=== PATIENT | female | born 1945 | race Caucasian/White ===

== ENCOUNTER 2024-12-22 19:45 | Inpatient (IN) | payer MEDICARE, BC, SELFPAY ==
[2024-12-22] VITALS (7 sets, daily range): BP systolic 126–161; BP diastolic 54–100; BMI 24.9
--- NOTE | 2024-12-22 16:31 | ED.GENMED ---
History of Present Illness
General
Chief Complaint: Weakness
Source: patient and family
Time Seen by Provider: 12/22/24 15:58
History of Present Illness
History of Present Illness:
79-year-old female with past medical history of MS and hyperlipidemia presenting to the emergency department for evaluation of weakness to bilateral lower extremities, initially today right leg felt a little bit weaker than the left but now she
states left leg seems to be bothering her a little bit more, due to the weakness had a fall where she was unable to get herself from the ground and required family members to lift her up. Patient does have a history of falls resulting in bilateral
hip fractures and ankle fractures, she denies any current pain. Family states that patient for the most part is quite independent and needs minimal assistance but was concerned due to her worsening weakness which is what prompted them to bring her
to the ER today. Patient denies any headaches, visual changes/diplopia/blurred vision, focal numbness, chest pain, shortness of breath or any other concerns. Patient was taken off of her MS medications at the age of 74 as family reports the
neurologist said the medication would no longer be of much benefit. Social history otherwise noncontributory.
Past History
Past History
ED Past Medical History: Hypercholesterolemia, Seizures (?) and Other (MS, previous intracranial hemorrhage, previous seizure after intercranial hemorrhage. It's not clear whether this was a subdural hematoma or subarachnoid. Hyperlipidemia)
ED Past Surgical History: Cholecystectomy, Gynecological and Orthopedic
Social History
Tobacco: Non-smoker
Alcohol: None
Drug: None
Personal:
Living: with family
Employment: Not employed
Family History
Family History: Other
Review of Systems
Review of Systems
All Other Systems: ROS reviewed and negative except as documented in HPI and ROS
Phy Exam
Physical Exam
Physical Exam:
GENERAL: Alert , in no apparent distress, smiling and pleasant
HEAD: Normocephalic atraumatic
EYE: Clear conjunctiva, pupils 4 mm bilateral
NECK: Supple, no midline tenderness
ENT: o/p clr, mmm.
CARDIAC: Regular rate and rhythm .
LUNGS: Clear breath sounds bilaterally, no acute respiratory distress, no wheezes/rales/rhonchi
ABDOMEN: Soft, without focal tenderness, no r/g, no cvat
NEUROLOGICAL: Alert and oriented, no focal neuro deficits, moves all extremities, intact and equal sensation bilateral, slow speech with mild slurring but both patient and daughter report this is normal for her
SKIN: Warm and dry, skin intact.
MUSCULOSKELETAL: No edema, well perfused.
PSYCH: Normal and appropriate interaction.
Scores
Heart Failure Risk
Heart Failure Risk Score: Not Applicable
Heart Score for Chest Pain Patients
STEMI patient?: Not applicable
Withdrawal Assessment of Alcohol
Withdrawal Assessment Completed?: Not applicable
Course
Orders/Labs/Results
Orders:
Orders
12/22/24 16:16
Electrocardiogram (*1) Urgent
Reason for Study: Fatigue / Weakness
CT Head W/o Iv Contrast Urgent
Comment:
Reason For Exam: MS, bilateral LE weakness
EKG- Treatment ONCE
12/22/24 16:49
Basic Metabolic Panel Urgent
Complete Blood Count/With Diff Urgent
Magnesium Urgent
TSH Urgent
12/22/24 19:26
COVID-19 Antigen Routine
Source: Nasal Swab
12/22/24 19:33
Admit/Transfer Patient As Directed
Co-Sign Provider:
Level of Care: Inpatient admission
Assign to:: Medical/Surgical
Physician / Group: htay
Diagnosis: b/l Luis weakness
Reason for Hospitalization: Both leg weakness and acute on chr gait dysfunction
Expected length of stay greater than two midnights?: Yes
ELOS- Estimated Length of Stay in days: 3
I certify the patient meets the requirements for IP care: Yes
12/22/24 19:35
Code Status As Directed
Resuscitation Status: Full Code
12/22/24 19:37
Influenza A+B Rapid Molecular Routine
ARISTIDES Source: Nasal Swab
Specimen Description:
12/22/24 19:38
Urinalysis Reflex To Culture Routine
Abnormal Lab Results
12/22/24
16:49
RBC 3.95 L 10^6/uL
(4.20-5.40)
Hct 35.6 L %
(37.0-47.0)
Abs Immat Gran (auto) 0.1 H 10^3/uL
(0-0.05)
Absolute Neuts (auto) 6.9 H 10^3/uL
(1.4-6.5)
Absolute Lymphs (auto) 0.9 L 10^3/uL
(1.2-3.4)
Immature Gran % 0.6 H %
(0-0.5)
Neutrophils % 82.2 H %
(42.2-75.2)
Lymphocytes % 10.3 L %
(20.5-51.1)
Chloride 108 H mmol/L
(98-107)
Glucose 118 H mg/dl
(70-99)
12/22/24 16:49
12/22/24 16:49
Vital Signs
Initial and Last Documented VS:
Initial Vital Signs
Temp Pulse Resp BP Pulse Ox
98.4 F 105 17 155/87 95
12/22/24 15:07 12/22/24 15:07 12/22/24 15:07 12/22/24 15:07 12/22/24 15:07
Last Documented Vital Signs
Temp Pulse Resp BP Pulse Ox
98.4 F 101 17 150/72 99
12/22/24 15:07 12/22/24 19:00 12/22/24 19:00 12/22/24 19:00 12/22/24 19:00
MDM/Problems Addressed
Differential Diagnosis Includes:
MS exacerbation, less concern for CVA given bilateral symptoms, electrolyte derangement, intracranial bleed/mass/space-occupying lesion, deconditioning
MDM/Problems Addressed:
7-year-old female presenting to the ER for evaluation following accidental fall resulting in her having difficulty getting up off the ground and requiring multiple family members to help get her up, family brought her here for further evaluation.
Patient without any pain related complaints. She does state that both legs feel little bit weak but left currently feels a little bit more weak than the right despite the triage complaint of stating the right leg seems to be worse than the left.
On my exam patient is moving both extremities without any difficulty and has intact strength. Given her MS history will obtain CT scan of the head. Labs ordered. Disposition pending.
Chronic conditions affecting care: Neurological disorder
*Radiology
Radiology exam reviewed: radiology read reviewed
*Pulse Oximetry
Patient hypoxic: no
*Critical Care Note
Total Time (30-74mins, 75-104mins- exclusive of procedures): Not Applicable
Patient Management
Discussion with other providers: Hospitalist
Escalation/DeEscalation of care consider admission/obs:
CT scan without any acute intracranial findings. I do not have any concerns for sinusitis as a cause for patient's symptoms. Given her age and chronic medical conditions as well as fall risk I do not feel it is safe for patient to be discharged
home presently and will admit for further evaluation and consultation with physical therapy and potential neurology if hospitalist team deems necessary. Hospitalist team accepts for continued evaluation and treatment.
ED Attending Note
-
Portions of this chart may have been created with voice recognition software.� Occasional wrong word or��sound alike� substitutions may have occurred due to the inherent limitations of voice recognition software.
Discharge Plan
Departure
Patient Disposition: Admit
Date of Disposition: 12/22/24
Time of Disposition: 19:02
Presentation/result/management discussed w/ accepting MD/DO: Hospitalist
Discharge Problem:
Weakness of both lower extremities, Accidental fall
Prescriptions:
No Action
citalopram 20 MG tablet
20 mg PO DAILY
PreserVision AREDS-2 1 EACH capsule
1 cap PO BID
cetirizine 10 MG tablet
10 mg PO HS
ascorbic acid (vitamin C) [Vitamin C] 500 MG tablet
500 mg PO DAILY
alprazolam 0.5 MG tablet
0.5 mg PO HS
pantoprazole [Protonix] 40 mg Tablet,Delayed Release (Dr/Ec)
40 mg PO DAILY
vitamin E 670 mg (1,000 unit) Capsule
670 mg PO DAILY
simvastatin 20 mg Tablet
20 mg PO HS
solifenacin 5 mg Tablet
5 mg PO DAILY
calcium carbonate-vitamin D3 [Calcium 500 + D] 500 mg-10 mcg (400 unit) Tablet
1 tab PO DAILY
cyanocobalamin (vitamin B-12) 1,000 MCG tablet
1,000 mcg PO HS
Referrals:
Delmer Terry MD [Family Provider] -
Interventions
Interventions:
*Risk Screen - Suicide Last Done: 12/22/24 15:11
*General Assessment Last Done: 12/22/24 15:11
*Neglect/Abuse Screening Last Done: 12/22/24 15:11
*ED COVID-19 Vaccine History Last Done: 12/22/24 15:11
ED- Cardiac Assessment Last Done: 12/22/24 16:16
ED- Neurological Assessment Last Done: 12/22/24 16:16
ED- Pulmonary Assessment Last Done: 12/22/24 16:16
Discharge Date and Time
Print Language: UKRAINIAN
[2024-12-22 17:36] LABS: % Basophils 0.2 % (0-2); % Eosinophils 0.2 % (0-6); % Immature Granulocytes 0.6 % (0-0.5); % Lymphocytes 10.3 % (20.5-51.1); % Monocytes 6.5 % (1.7-9.3); % Neutrophils 82.2 % (42.2-75.2); Absolute Immature Granulocytes 0.1 10^3/uL (0-0.05); Absolute Lymphocytes 0.9 10^3/uL (1.2-3.4); Absolute Monocytes 0.5 10^3/uL (0.1-0.6); Absolute Neutrophils 6.9 10^3/uL (1.4-6.5); Hematocrit 35.6 % (37.0-47.0); Hemoglobin 12.1 g/dL (12.0-16.0); Mean Corpuscular Hgb 30.6 pg (27.0-31.0); Mean Corpuscular Volume 90.1 fL (81.0-99.0); Mean Platelet Volume 8.6 fL (7.4-10.4); Nucleated Red Blood Cells % 0 %; Platelet Count 243 10^3/uL (130-400); Red Blood Cell Count 3.95 10^6/uL (4.20-5.40); Red Cell Dist. Width 12.6 % (11.5-14.5); White Blood Cell Count 8.4 10^3/uL (4.8-10.8)
[2024-12-22 17:39] LABS: Blood Urea Nitrogen 15 mg/dl (7-17); Calcium 9.3 mg/dl (8.4-10.2); Carbon Dioxide 26 mmol/L (22-30); Chloride 108 mmol/L (98-107); Glucose 118 mg/dl (70-99); Magnesium 2.3 mg/dl (1.6-2.3); Potassium 4.1 mmol/L (3.5-5.1); Sodium 144 mmol/L (135-145); eGFR > 60.00
[2024-12-22 18:10] LABS: TSH 0.73 uIU/ml (0.47-4.68)
--- NOTE | 2024-12-22 19:30 | HPS.HSE ---
Family Physician
-
Family Physician: Delmer Terry
Chief Complaint
-
B/l Luis weakness
History of Present Illness
HPI
79F HX MS, HLD and hyperlipidemia, HX ORIF right hip long gamma nail on 05/07/2023 for R Hip Fx seen at ER:
- weakness to bilateral lower extremities
- Initially Rt Luis felt a little bit weaker than the left
- now Lt Luis is waeaker complicated by fall
- After fall where she was unable to get herself from the ground and required family members to lift her up.
- Family states that patient for the most part is quite independent and needs minimal assistance
- family concerned due to her worsening weakness which is what prompted them to bring her to the ER today.
Of note: Patient was taken off of her MS medications at the age of 74 as family reports the neurologist said the medication would no longer be of much benefit.
ROS:
- denies any current pain.
- denies any headaches, visual changes/diplopia/blurred vision, focal numbness, chest pain, shortness of breath or any other concerns. P
Medical History
Past Medical History
Past Medical History: Reports Other (previous intracranial hemorrhage with post seizure, HLD, GERD, multiple sclerosis chronic ambulatory dysfunction uses walker, allergies, OA, insomnia, HLD)
Past Surgical History: Reports Other (Cholecystectomy, total hip replacement November 2012, lower back procedure 2009, right ankle ORIF 2019, tubal ligation 1971, lumpectomy 2004)
Social History
Tobacco: Non-smoker
Alcohol: None
Drug: None
Personal:
Living: With Family
Employment: Retired
Family History
Family History: Not pertinent
Allergies / Home Medications
Allergies reflects when Allergies were last updated in [facility].
Home Medications with original date entered in [facility]
Allergy/Medication List:
Allergies
Allergy/AdvReac Type Severity Reaction Status Date / Time
codeine [Codeine] Allergy Unknown Verified 05/05/23 17:23
erythromycin base Allergy Unknown Verified 05/05/23 17:23
[Erythromycin Base]
oxytetracycline Allergy Unknown Verified 05/05/23 17:23
[From Terramycin]
oxytetracycline HCl Allergy Unknown Verified 05/05/23 17:23
[From Terramycin]
Penicillins Allergy Unknown Verified 05/05/23 17:23
Sulfa (Sulfonamide Allergy Unknown Verified 05/05/23 17:23
Antibiotics)
[Sulfa(Sulfonamide
Antibiotics)]
Tetanus Vaccines and Toxoid Allergy Unknown Verified 05/05/23 17:23
[Tetanus]
Home Medications
citalopram 20 mg tablet 20 mg PO DAILY 06/08/12
simvastatin 20 mg tablet 20 mg PO HS 06/08/12
vit C 250 mg-vit E 90 mg-zinc 40 mg-copper 1 [id number]-[id number]-oftlgy capsule (PreserVision AREDS-2) 1 cap PO BID 04/05/19
ascorbic acid (vitamin C) 500 mg tablet (Vitamin C) 500 mg PO DAILY 10/04/19
calcium carbonate 500 mg-vitamin D3 3.125 mcg (125 unit) tablet 1 ea PO DAILY 10/04/19
cetirizine 10 mg tablet 10 mg PO HS 10/04/19
vitamin E 670 mg (1,000 unit) capsule 1,000 unit PO DAILY 10/04/19
acetaminophen 325 mg tablet 650 mg PO Q4HWA 10/05/19
aspirin 81 mg tablet,delayed release 81 mg PO DAILY 10/05/19
cholecalciferol (vitamin D3) 50 mcg (2,000 unit) tablet 2,000 units PO DAILY 10/05/19
cyanocobalamin (vitamin B-12) 1,000 mcg tablet 1,000 mcg PO DAILY 10/05/19
magnesium hydroxide 400 mg/5 mL oral suspension 30 ml PO DAILYPRN PRN constipation 10/05/19
alprazolam 0.5 mg tablet 0.5 mg PO HS 05/05/23
docusate sodium 100 mg capsule 100 mg PO BID PRN consitpation 05/05/23
pantoprazole 40 mg tablet,delayed release (Protonix) 40 mg PO DAILY 05/05/23
sennosides 8.6 mg tablet (senna) 2 tab PO BID PRN consitpation 05/05/23
tolterodine 2 mg PO DAILY AT 0700 05/05/23
Review of Systems
-
Constitutional: Reports No Symptoms
EENT: Reports No Symptoms
Respiratory: Reports No Symptoms
Cardiac: Reports No Symptoms
Abdomen/GI: Reports No Symptoms
: Reports No Symptoms
Musculoskeletal: Reports No Symptoms
Skin: Reports No Symptoms
Neurological: Reports See HPI and Weakness (b/l Luis )
Endocrine: Reports No Symptoms
Hematologic/Lymphatic: Reports No Symptoms
Psych: Reports No Symptoms
Physical Exam
Vital Signs
Vital Signs
Temp Pulse Resp BP Pulse Ox
98.4 F 101 17 150/72 99
12/22/24 15:07 12/22/24 19:00 12/22/24 19:00 12/22/24 19:00 12/22/24 19:00
Physical Exam
General: Conversant and Other (Chronic slow speech due to multiple sclerosis); No Pain or Fever
HEENT: NormoCephalic, Anicteric, Moist mucous membranes, Atraumatic, PERRLA, Twodot Conjunctivae and Neck Nontender
Respiratory: Clear; No Wheezes, Rales or Rhonchi
Cardiac: S1/S2 and Regular Rhythm; No Murmur, Rub, Gallop or Peripheral Edema
GI: Soft, Non Tender, Non Distended, Normal Bowel Sounds and No Hepatosplenomegaly
Rectal: Deferred by Provider
Genito-urinary: Deferred by me
Musculoskeletal: No Clubbing, No Cyanosis, No Edema and Other (Tenderness right distal femur)
Neuro: AO x 3, Cranial Nerves Intact, No Sensory Deficits and Other (Slow speech secondary to MS); No Slurred Speech, Facial Droop or Tremors
Psych: Calm
Laboratory Results
-
12/22/24 16:49
12/22/24 16:49
Data Reviewed
-
CT Scan: Report Reviewed by me
Lab Data: Labs Reviewed by me
Old Records: Reviewed
Impression/Plan
-
Vital Signs
Temp Pulse Resp BP Pulse Ox
98.4 F 101 17 150/72 99
12/22/24 15:07 12/22/24 19:00 12/22/24 19:00 12/22/24 19:00 12/22/24 19:00
12/22/24
16:49
WBC 8.4
Hgb 12.1
Plt Count 243
BUN 15
Creatinine 0.6
eGFR > 60.00
CT Head W/o Iv Contrast
- No acute intracranial abnormality noted.
- There is opacification of the right maxillary sinus and ethmoid air cells with partial opacification of the right frontal sinus which may represent acute sinusitis.
Last hospitalist admission: 05/05/2023 - 05/10/2023
DC DXs:
1. Mechanical fall with right hip fracture status post ORIF right hip long gamma nail on 05/07/2023.
2. Long QTc-chronic.
3. Blood loss anemia secondary to surgery.
4. Constipation.
5. Multiple sclerosis.
6. Vitamin D deficiency.
7. Hyperlipidemia.
8. Depression.
9. Overactive bladder.
10.Gastroesophageal reflux disease.
11.Osteoarthritis.
12.Insomnia.
13.Hearing impairment.
ASSESSMENT & PLAN
B/L Luis weakness Lt > Rt altered from prior baseline DDX: MS flare up vs TME
HX Multiple sclerosis
- Is no longer on treatment
- Speaks with very slow voice eats chopped diet and drinks with a straw
- Uses walker at baseline
- Check Covid, Flu A & B and UA to complete w/u
- supportive care with IVF
- Neuro consult to guid further w/u
HLD
- c/w simvastatin 20 mg HS
HX ICH with post seizure HX
- no current seizure meds
Depression
- c/w Celexa
Overactive bladder
- c/w tolterodine
OA HX
- c/w Os-James
Insomnia
- c/w Xanax 0.5 mg HS
DVT Px: SQH
Full code
Obs MS
[2024-12-22 20:07] LABS: COVID-19 Antigen Negative (Negative)
--- NOTE | 2024-12-22 22:00 | PTCARENOTE ---
Patient admitted from ED. Patient AOx3, pulled over from stretcher to bed. Patient has c/o left leg pain, requested PRN tylenol. Vitals obtained, pt assessed. Call martinez within reach. Will continue to monitor. Bed alarm in place due to fall prior to
admission. Safety maintained.
[2024-12-22] MEDS: HEPARIN 5000 UNITS SC (22:12)
[2024-12-22] MEDS: LIPITOR 10 MG PO (22:12)
[2024-12-22] MEDS: XANAX 0.5 MG PO (22:12)
[2024-12-22] MEDS: NSS 1000 IV (22:12)
[2024-12-22] MEDS: TYLENOL 650 MG PO (22:28)
[2024-12-22 23:14] LABS: Urine Albumin 2+ (Neg - Trace); Urine Bilirubin Negative (Negative); Urine Character Cloudy (Clear); Urine Color Yellow; Urine Glucose Negative (Negative); Urine Ketone Negative (Negative); Urine Leukocyte 1+ (Negative); Urine Nitrite Positive (Negative); Urine Occult Blood Negative (Negative); Urine Specific Gravity 1.015 (<1.030); Urine Urobilinogen Negative (Neg - 1+)
[2024-12-22 23:40] LABS: Urine Bacteria Many (Negative)
[2024-12-23 05:00] VITALS: BMI 24.9
[2024-12-23 06:36] LABS: Hematocrit 33.1 % (37.0-47.0); Hemoglobin 11.1 g/dL (12.0-16.0); Mean Corp Hgb Conc. 33.5 g/dL (33.0-37.0); Mean Corpuscular Hgb 30.2 pg (27.0-31.0); Mean Corpuscular Volume 90.2 fL (81.0-99.0); Mean Platelet Volume 8.4 fL (7.4-10.4); Platelet Count 199 10^3/uL (130-400); Red Blood Cell Count 3.67 10^6/uL (4.20-5.40); Red Cell Dist. Width 12.7 % (11.5-14.5); White Blood Cell Count 6.7 10^3/uL (4.8-10.8)
[2024-12-23 07:04] LABS: Blood Urea Nitrogen 11 mg/dl (7-17); Calcium 8.9 mg/dl (8.4-10.2); Carbon Dioxide 26 mmol/L (22-30); Chloride 110 mmol/L (98-107); Estimated Creatinine Clearance 62 ml/min; Glucose 107 mg/dl (70-99); Potassium 4.2 mmol/L (3.5-5.1); Sodium 143 mmol/L (135-145); eGFR > 60.00
[2024-12-23 07:42] VITALS: BP 119/68
[2024-12-23] MEDS: CELEXA 20 MG PO (07:48)
[2024-12-23] MEDS: PROTONIX 40 MG PO (07:49)
[2024-12-23] MEDS: HEPARIN 5000 UNITS SC ×2 (07:49→21:01)
--- NOTE | 2024-12-23 08:14 | W.PN.HOSP.TC ---
Addendum entered and electronically signed by Gato Pastrana MD 12/23/24 22:02:
Attending Addendum-
I saw and evaluated the patient. I reviewed the resident�s note and agree with findings and plan as documented in the resident�s note. Sub: Very pleasant. Feels weak but no ther complaints. States that she was urinating more frequently after being
stared on IVF. Seen with and daughter present. Denies numbness tingling vision changes other neuro sxs fevers chills. Full 12 point ROS reviewed and negative except as documented Exam: Vitals reviewed in chart GEN-NAD heart RRR lungs clear
abd soft LE +1 edema b/l Neuro AAO x 3 MS 4+/5
Plan:
# Bilateral lower extremity weakness
- Etiology unclear
- generalized
- ? MS flare
- t/c c/s neuro
- Head CT no acute intracranial abnormalities other than findings suggestive of right frontal and maxillary sinus sinusitis
- COVID flu negative
- PT OT consult
# MS
- not on meds
- taken off by neurologist due to age related reasons per daughter
- CTM
- T/C neuro eval
# Hyperlipidemia
- Continue simvastatin
# Bacteruria
- await cx results
- with h/o abx allergies and not being septic - hold off on abx for now
# History of anemia, chronic normocytic
- Hemoglobin stable
# History of insomnia
- Continue Xanax
# History of overactive bladder
- Continue solifenacin
# History of depression
- Continue citalopram
# History of seizure and intracranial hemorrhage
DVT prophylaxis heparin
Code- Full->DNR d/w POA and daughter
Dispo would benefit from SNF vs acute rehab await
ACP
Patient consented to discuss, was with daughter and (POA), time spent explanation of advance directives, changes in health status, patient�s health care wishes if the patient becomes unable to make health decisions, goals of care, code
status, and prognosis 'when im ready let the lord take me'- 16 minutes
Time spent coordinating care, review of plan of care with resident, personally reviewed previous records in EMR, med rec, labs, radiology, d/w nursing, family total time documented is exclusive of any additional time listed that was spent in advance
care planning discussion -� 55 minutes
Original Note:
Today's Communication/Plan
-
PT OT consult
Urine culture pending
Assessment / Plan
Assessment / Plan
79-year-old female with pmhx of MS, hx of intracranial hemorrhage and seizure, hyperlipidemia, hx of for R Hip Fx s/p ORIF right hip long gamma nail (2022) presenting to the ED for evaluation of weakness to bilateral lower extremities, initially
right leg but now left leg. She had a fall where she was unable to get herself from the ground and required family members to lift her up. Patient does have a history of falls resulting in bilateral hip fractures and ankle fractures secondary to
her MS, she denies any current pain. Family states that patient for the most part is quite independent and needs minimal assistance. Patient denies any headaches, visual changes/diplopia/blurred vision, focal numbness, chest pain, shortness of
breath or any other concerns. Patient was taken off of her MS medications at the age of 74 as family reports the neurologist said the medication would no longer be of much benefit.
# Bilateral lower extremity weakness
- Etiology unclear, metabolic vs MS flare versus stroke
- Head CT no acute intracranial abnormalities other than findings suggestive of right frontal and maxillary sinus sinusitis
- COVID flu negative
- No history of irregular rhythm. EKG normal sinus rhythm in the ED
- UA suggestive of infection
- Patient initially denied any urinary symptoms but on further questioning noted urgency although has a history of overactive bladder. She is allergic - hives - to several antibiotics including penicillin, sulfa, tetracycline.
- Urine culture pending. Will wait for culture results before starting treatment
- PT OT consult
# Hyperlipidemia
- Continue simvastatin
# History of anemia, chronic normocytic
- Hemoglobin stable
# History of insomnia
- Continue Xanax
# History of overactive bladder
- Continue solifenacin
# History of depression
- Continue citalopram
# History of seizure and intracranial hemorrhage
DVT prophylaxis heparin subcu
Anticipated Discharge: Within 24 hours
Subjective/Interval History
-
Date of Service: December 23, 2024
Objective Data
-
Labs:
Laboratory Results
12/23/24
06:18
WBC 6.7
Hgb 11.1 L
Hct 33.1 L
Plt Count 199
Sodium 143
Potassium 4.2
Chloride 110 H
Carbon Dioxide 26
BUN 11
Creatinine 0.6
Glucose 107 H
Calcium 8.9
Vital Signs:
Vital Signs
Temp Pulse Resp BP Pulse Ox
97.7 F 84 18 119/68 96
12/23/24 07:42 12/23/24 07:42 12/23/24 07:42 12/23/24 07:42 12/23/24 07:42
I&O
12/22/24 12/23/24 12/24/24
06:59 06:59 06:59
Intake Total 240 / 240
Balance 240 / 240
Review of Systems
-
History Source: Patient
Constitutional: Reports Weakness
EENT: Reports No Symptoms Reported
Respiratory: Reports No Symptoms
Cardiac: Reports No Symptoms
Abdomen/GI: Reports No Symptoms
Breast: Reports No Symptoms
Genitourinary: Reports No Symptoms
Musculoskeletal: Reports No Symptoms
Skin: Reports No Symptoms
Neuro: Reports No Symptoms
Endocrine: Reports No Symptoms
Hematologic / Lymphatic: Reports No Symptoms
Allergy / Immunology: Reports No Symptoms
Psych: Reports Sad
Physical Exam
-
General: Well Developed, Well Nourished, No Apparent Distress and Comfortable
HEENT: Normocephalic and No Ptosis
Respiratory: Clear to Auscultation
Cardiac: Regular Rhythm and S1/S2
GI: Soft, Nontender, Nondistended and Normal Bowel Sounds
Genito-urinary: No Costovertebral Tender and Clear Urine
Musculoskeletal: No Clubbing, No Cyanosis, No Edema and Other (Bilateral hip flexion 4/5, left knee extension 4/5, right knee extension 4+/5, left plantar flexion 3/5, right plantar flexion 4/5)
Skin: Warm
Neuro: Awake, Alert, Oriented, AO x 3, Central Nerve's Intact and No Sensory Deficits; Negative Slurred Speech or Facial Droop
Psych: Calm
[2024-12-23] MEDS: VESICARE 5 MG PO (08:54)
[2024-12-23] MEDS: NSS 1000 IV (12:43)
--- NOTE | 2024-12-23 13:51 | CM ---
Patient seen bedside with spouse and daughter Jaja.
Patient able to answer questions appropriately.
Patient lives with spouse in multilevel home.
Does not use assistive devices, but has a RW, WC and stair glide.
Patient has been to [facility] the past. Had [facility] in the past.
PT/OT evals (P).
Patient with a hx MS.
PCP: Dr Gutiérrez
Pharmacy: [facility]
Plan: home vs skilled rehab.
[2024-12-23 15:23] VITALS: BP 147/76
[2024-12-23] MEDS: XANAX 0.5 MG PO (21:02)
[2024-12-23] MEDS: LIPITOR 10 MG PO (21:02)
[2024-12-23 23:00] VITALS: BP 163/79
[2024-12-24 00:51] VITALS: BP 144/99
[2024-12-24 05:50] VITALS: BMI 25.1
[2024-12-24 06:39] LABS: % Basophils 0.5 % (0-2); % Eosinophils 4.7 % (0-6); % Immature Granulocytes 0.5 % (0-0.5); % Lymphocytes 26.8 % (20.5-51.1); % Monocytes 12.2 % (1.7-9.3); % Neutrophils 55.3 % (42.2-75.2); Absolute Eosinophils 0.3 10^3/uL (0-0.7); Absolute Lymphocytes 1.7 10^3/uL (1.2-3.4); Absolute Monocytes 0.8 10^3/uL (0.1-0.6); Absolute Neutrophils 3.5 10^3/uL (1.4-6.5); Hematocrit 33.9 % (37.0-47.0); Hemoglobin 11.4 g/dL (12.0-16.0); Mean Corp Hgb Conc. 33.6 g/dL (33.0-37.0); Mean Corpuscular Hgb 29.7 pg (27.0-31.0); Mean Corpuscular Volume 88.3 fL (81.0-99.0); Mean Platelet Volume 8.5 fL (7.4-10.4); Nucleated Red Blood Cells % 0 %; Platelet Count 207 10^3/uL (130-400); Red Blood Cell Count 3.84 10^6/uL (4.20-5.40); Red Cell Dist. Width 12.5 % (11.5-14.5); White Blood Cell Count 6.4 10^3/uL (4.8-10.8)
[2024-12-24 07:25] LABS: Blood Urea Nitrogen 8 mg/dl (7-17); Calcium 9.1 mg/dl (8.4-10.2); Carbon Dioxide 23 mmol/L (22-30); Chloride 107 mmol/L (98-107); Estimated Creatinine Clearance 62 ml/min; Glucose 113 mg/dl (70-99); Potassium 3.6 mmol/L (3.5-5.1); Sodium 140 mmol/L (135-145); eGFR > 60.00
[2024-12-24 07:30] VITALS: BP 119/69
[2024-12-24] MEDS: CELEXA 20 MG PO (07:38)
[2024-12-24] MEDS: PROTONIX 40 MG PO (07:38)
[2024-12-24] MEDS: VESICARE 5 MG PO (07:39)
[2024-12-24] MEDS: HEPARIN 5000 UNITS SC ×2 (07:39→21:10)
--- NOTE | 2024-12-24 08:45 | W.PN.HOSP.TC ---
Addendum entered and electronically signed by Gato Pastrana MD 12/24/24 23:01:
Attending Addendum-
I saw and evaluated the patient. I reviewed the resident�s note and agree with findings and plan as documented in the resident�s note. Sub: Very pleasant. Continues to feel weak and complains of urinary incontinence. Seen with and daughter
present. Denies numbness tingling vision changes other neuro sxs fevers chills. Full 12 point ROS reviewed and negative except as documented Exam: Vitals reviewed in chart GEN-NAD heart RRR lungs clear abd soft LE +1 edema b/l Neuro AAO x 3 MS 4+/5
Plan:
# Bilateral lower extremity weakness
- generalized
- ? MS flare
- c/s neuro
- Head CT no acute intracranial abnormalities other than findings suggestive of right frontal and maxillary sinus sinusitis
- COVID flu negative
- PT OT consult
# MS
- not on meds
- taken off by neurologist due to age related reasons per daughter
- CTM
- neuro eval
- PT OT
# Hyperlipidemia
- Continue simvastatin
# Bacteruria
- urine cx - ecoli- sensi pend
- with h/o abx allergies and not being septic - hold off on abx for now
# History of anemia, chronic normocytic
- Hemoglobin stable
# History of insomnia
- Continue Xanax
# History of overactive bladder
- Continue solifenacin
# History of depression
- Continue citalopram
# History of seizure and intracranial hemorrhage
DVT prophylaxis heparin
Code- Full->DNR d/w POA and daughter
Dispo would benefit from SNF
Time spent coordinating care, review of plan of care with resident, personally reviewed records in EMR, med rec, consults, notes, labs, radiology, d/w nursing POA and daughter � 53 mins
Original Note:
Today's Communication/Plan
-
Neurology consult
UCx pending
Speech evaluation
Assessment / Plan
Assessment / Plan
79-year-old female with pmhx of MS, hx of intracranial hemorrhage and seizure, hyperlipidemia, hx of for R Hip Fx s/p ORIF right hip long gamma nail (2022) presenting to the ED for evaluation of weakness to bilateral lower extremities, initially
right leg but now left leg. She had a fall where she was unable to get herself from the ground and required family members to lift her up. Patient does have a history of falls resulting in bilateral hip fractures and ankle fractures secondary to
her MS, she denies any current pain. Family states that patient for the most part is quite independent and needs minimal assistance. Patient denies any headaches, visual changes/diplopia/blurred vision, focal numbness, chest pain, shortness of
breath or any other concerns. Patient was taken off of her MS medications at the age of 74 as family reports the neurologist said the medication would no longer be of much benefit.
# Bilateral lower extremity weakness
- Etiology unclear, metabolic vs MS flare versus stroke
- Head CT no acute intracranial abnormalities other than findings suggestive of right frontal and maxillary sinus sinusitis
- COVID flu negative
- No history of irregular rhythm. EKG normal sinus rhythm in the ED
- UA suggestive of infection
- Patient initially denied any urinary symptoms but on further questioning noted urgency although has a history of overactive bladder. She is allergic - hives - to several antibiotics including penicillin, sulfa, tetracycline.
- Urine culture pending. Will wait for culture results before starting treatment
- PT OT consulted --> recommending SNF
- Neurology consult
# Dysphagia
- Notified by nurse of difficulty swallowing large pills
- Speech evaluation
- Aspiration precautions
# Hyperlipidemia
- Continue simvastatin
# History of anemia, chronic normocytic
- Hemoglobin stable
# History of insomnia
- Continue Xanax
# History of overactive bladder
- Continue solifenacin
# History of depression
- Continue citalopram
# History of seizure and intracranial hemorrhage
DVT prophylaxis heparin subcu
Anticipated Discharge: Within 24 hours
Subjective/Interval History
-
Date of Service: December 24, 2024
Objective Data
-
Labs:
Laboratory Results
12/24/24
06:24
WBC 6.4
Hgb 11.4 L
Hct 33.9 L
Plt Count 207
Sodium 140
Potassium 3.6
Chloride 107
Carbon Dioxide 23
BUN 8
Creatinine 0.5 L
Glucose 113 H
Calcium 9.1
Vital Signs:
Vital Signs
Temp Pulse Resp BP Pulse Ox
98.4 F 86 17 119/69 97
12/24/24 07:30 12/24/24 07:30 12/24/24 07:30 12/24/24 07:30 12/24/24 07:30
I&O
12/23/24 12/24/24 12/25/24
06:59 06:59 06:59
Intake Total 240 / 240 660 / 660 320 / 320
Output Total 1550 / 1550
Balance 240 / 240 -890 / -890 320 / 320
Review of Systems
-
History Source: Patient
Constitutional: Reports No Symptoms
EENT: Reports No Symptoms Reported
Respiratory: Reports No Symptoms
Cardiac: Reports No Symptoms
Abdomen/GI: Reports No Symptoms
Breast: Reports No Symptoms
Genitourinary: Reports Frequency
Musculoskeletal: Reports No Symptoms
Skin: Reports No Symptoms
Neuro: Reports Weakness
Endocrine: Reports No Symptoms
Hematologic / Lymphatic: Reports No Symptoms
Allergy / Immunology: Reports No Symptoms
Physical Exam
-
General: Well Developed and Well Nourished
HEENT: Normocephalic
Respiratory: Clear to Auscultation
Cardiac: Regular Rhythm and S1/S2
GI: Soft, Nontender, Nondistended and Normal Bowel Sounds
Genito-urinary: No Costovertebral Tender
Musculoskeletal: No Clubbing, No Cyanosis and No Edema
Skin: Warm
Neuro: Awake, Alert, Oriented and AO x 3
Psych: Calm
[2024-12-24] MEDS: KCL 40 MEQ PO (09:09)
[2024-12-24 10:54] VITALS: BP 151/70; BP 163/85; PULSE 89; O2SAT 96
[2024-12-24 10:55] VITALS: BP 151/70; BP 163/85; PULSE 86; O2SAT 96
--- NOTE | 2024-12-24 11:50 | CM ---
Patient seen at bedside with daughter Mary & Sundeep
PT rec SNF
Options reviewed. Prefers [facility] or [facility]
Referrals entered in [facility]
no pre auth
PLAN: SNF, pending bed availability when medically stable
--- NOTE | 2024-12-24 12:59 | CON.NEURO ---
Consultation
Order
Date of Consultation: 12/24/24
Requesting Provider: Jennifer Ulloa MD, Resident
Reason for Consult: Leg weakness, falls
Neurology Consultation Note.
HPI: This is an 79-year-old woman who presented to [facility] on 12/22/2024 status post fall.
According to the patient she developed an acute symmetric painless leg weakness that began on 12/22/2024 while getting ready for jainism around 12 o'clock She reportedly experienced a unwitnessed fall in her bedroom closet with no head trauma loss of
consciousness. Ms. Faust describes her legs as feeling 'like jello' and giving out, causing her to fall onto her backside. Prior to this incident, she reports being able to walk up ramps without difficulty on the preceding days.
No reports of chronic dysarthria, sensory symptoms.
ER VS: 155/87, 105, afebrile.
EKG: NSR, QTc Int : 506 ms
PDMP: Xanax 0.5 Mg 45 tablets filled in , 60 tablets filled in on 10/30/2024
Labs: Urine culture ()�E. coli, normal WBCs, creatinine, TSH, sodium, glucose�107, UA (01/08/2025)�positive nitrates, leukocyte esterase, RBCs, WBCs
CT head wo contrast- opacification of the right maxillary sinus and ethmoid air cells with partial opacification of the right frontal sinus which may represent acute sinusitis.
Moderate/severe subcortical, deep, and periventricular white matter low-attenuation, compatible with changes of chronic small vessel ischemic disease. Mild global parenchymal volume loss. Prior left basal ganglia lacunar infarction
PMG: MS, h/o lumbar stenosis, traumatic ICH, seizure DO, ambulatory dysfunction HLD, GERD, NANETTE, insomnia
PSH: Lumbar laminectomy, cholecystectomy, L JUAN, lower back procedure 2009, right ankle ORIF 2019, tubal ligation 1971, lumpectomy 2004
SH: , retired company secretary, ambulates with a walker, does not drive
FH: Not contributory
All: Sulfas, penicillins, oxytetracycline, erythromycin, codeine,
ROS: Negative for headache, change in vision, chronic imbalance, urinary incontinence
General: Well developed. In no acute distress.
Cardio: Regular rate and rhythm without murmur. Extremities are without cyanosis or edema.
Neuro:
Mental Status: Alert, oriented to self, location, year, month. Impaired attention. Slow speech. No hemineglect.
Cranial Nerves: Pupils are equally round and reactive to light. EOMs full. Visual hauser full to confrontation. No ptosis. No nystagmus. Face symmetric. Impaired hearing AU. The palate elevated well. SCMs and traps 5/5. Tongue midline.
Moderate to severe dysarthria
Motor: Increased motor tone in lower extremities
Reflexes: 3+ throughout, grasp�positive bilaterally
Sensory: Limited exam due to poor attention
Coordination: No dysmetria or tremor.
Gait: deferred
Bilateral pes cavus and hammertoes
Assessment and Plan:
I. Transient worsening of paraparesis.
II. Chronic thoracic myelopathy
III. History of multiple sclerosis
IV. Encephalopathy (demyelinating, infectious)
V. E. coli UTI
- Fall precautions
- Please check PVR
- Obtain brain MRI without nanette to rule out bifrontal infarcts
- PT
- Will follow-up
I personally reviewed all radiology and labs along with past medical records pertinent to current medical problems. Total time spent in patient care is 60 minutes.
Thank you for allowing us to participate in the care of this patient. We will continue to follow. Please do not hesitate to contact us with any questions or concerns.
Subjective/Objective
Subjective Data
Date of Service: December 24, 2024
Objective Data
Vital Signs
Temp Pulse Resp BP Pulse Ox
36.9 C 86 17 119/69 97
12/24/24 07:30 12/24/24 07:30 12/24/24 07:30 12/24/24 07:30 12/24/24 07:30
Lab Results
12/24/24 06:24
12/24/24 06:24
Sodium 140 mmol/L (135-145) 12/24/24 06:24
Potassium 3.6 mmol/L (3.5-5.1) 12/24/24 06:24
BUN 8 mg/dl (7-17) 12/24/24 06:24
Glucose 113 mg/dl (70-99) H 12/24/24 06:24
Calcium 9.1 mg/dl (8.4-10.2) 12/24/24 06:24
Patient Allergies
codeine [Codeine] Allergy (Verified 12/22/24 15:09)
Unknown
erythromycin base [Erythromycin Base] Allergy (Verified 12/22/24 15:09)
Unknown
oxytetracycline [From Terramycin] Allergy (Verified 12/22/24 15:09)
Unknown
oxytetracycline HCl [From Terramycin] Allergy (Verified 12/22/24 15:09)
Unknown
Penicillins Allergy (Verified 12/22/24 15:09)
Unknown
Sulfa (Sulfonamide Antibiotics) [Sulfa(Sulfonamide Antibiotics)] Allergy (Verified 12/22/24 15:09)
Unknown
Tetanus Vaccines and Toxoid [Tetanus] Allergy (Verified 12/22/24 15:09)
Unknown
Medications
-
Active Medications
Generic Name Dose Route Start Last Admin
Trade Name Freq PRN Reason Stop Dose Admin
Acetaminophen 650 mg 12/22/24 22:03 12/22/24 22:28
Acetaminophen 325 Mg Tablet PO 01/19/25 22:02 650 mg
Q4HPRN PRN Administration
mild pain/ fever>100.5F
Alprazolam 0.5 mg 12/22/24 22:00 12/23/24 21:02
Alprazolam 0.5 Mg Tablet PO 01/19/25 21:59 0.5 mg
HS AI Administration
Atorvastatin Calcium 10 mg 12/22/24 22:00 12/23/24 21:02
Atorvastatin (Lipitor) 10 Mg Tablet PO 01/19/25 21:59 10 mg
HS AI Administration
Bisacodyl 10 mg 12/22/24 21:07
Bisacodyl 10 Mg Rectal Suppository RECTAL 01/19/25 21:06
[id number] PRN
constipation
Citalopram Hydrobromide 20 mg 12/23/24 08:00 12/24/24 07:38
Citalopram 20 Mg Tablet PO 01/20/25 07:59 20 mg
DAILY AI Administration
Heparin Sodium 5,000 units 12/22/24 21:07 12/24/24 07:39
Heparin 5,000 Units/Ml 1 Ml Vial SC 01/19/25 21:06 5,000 units
Q12 AI Administration
Pantoprazole Sodium 40 mg 12/23/24 08:00 12/24/24 07:38
Pantoprazole 40 Mg Delayed Release Tablet PO 01/20/25 07:59 40 mg
DAILY AI Administration
Polyethylene Glycol 17 grams 12/22/24 21:07
Polyethylene Glycol Powder 17 Grams Packet PO 01/19/25 21:06
DAILYPRN PRN
constipation
Senna/Docusate Sodium 1 tablet 12/22/24 21:07
Docusate W/Senna (Linnea-Colace) Tablet PO 01/19/25 21:06
BIDPRN PRN
constipation
Sodium Chloride 0 flush 12/22/24 22:00
Sodium Chloride 0.9% (Flush) Syringe IV 01/19/25 21:59
PER PROTOCOL AI
Solifenacin 5 mg 12/23/24 08:00 12/24/24 07:39
Solifenacin Succinate (Vesicare) 5 Mg Tablet PO 01/20/25 07:59 5 mg
DAILY AI Administration
Home Medications
�Medication �Instructions �Recorded
citalopram 20 mg tablet 20 mg PO DAILY Depression 06/08/12
vit C 250 mg-vit E 90 mg-zinc 40 1 cap PO BID Supplement 04/05/19
mg-copper 1 [id number]
capsule (PreserVision AREDS-2)
ascorbic acid (vitamin C) 500 mg 500 mg PO DAILY Supplement 10/04/19
tablet (Vitamin C)
cetirizine 10 mg tablet 10 mg PO HS Allergies 10/04/19
alprazolam 0.5 mg tablet 0.5 mg PO HS Mental Health/Anxiety 05/05/23
pantoprazole 40 mg tablet,delayed 40 mg PO DAILY Gastrointestinal 05/05/23
release (Protonix) Issue
calcium 500 mg (as 1 tab PO DAILY Supplement 12/22/24
carbonate)-vitamin D3 10 mcg (400
unit) tablet (Calcium 500 + D)
cyanocobalamin (vitamin B-12) 1,000 mcg PO HS Supplement 12/22/24
1,000 mcg tablet
simvastatin 20 mg tablet 20 mg PO HS High Cholesterol 12/22/24
solifenacin 5 mg tablet 5 mg PO DAILY OAB 12/22/24
vitamin E 670 mg (1,000 unit) 670 mg PO DAILY Supplement 12/22/24
capsule
Vital Signs and Labs
-
Vital Signs and Labs:
Vital Signs
Temp Pulse Resp BP Pulse Ox
36.9 C 86 17 119/69 97
12/24/24 07:30 12/24/24 07:30 12/24/24 07:30 12/24/24 07:30 12/24/24 07:30
Lab Results
12/24/24 06:24
12/24/24 06:24
Sodium 140 mmol/L (135-145) 12/24/24 06:24
Potassium 3.6 mmol/L (3.5-5.1) 12/24/24 06:24
BUN 8 mg/dl (7-17) 12/24/24 06:24
Glucose 113 mg/dl (70-99) H 12/24/24 06:24
Calcium 9.1 mg/dl (8.4-10.2) 12/24/24 06:24
Medications
-
Medications:
Generic Name Dose Route Start Last Admin
Trade Name Freq PRN Reason Stop Dose Admin
Acetaminophen 650 mg 12/22/24 22:03 12/22/24 22:28
Acetaminophen 325 Mg Tablet PO 01/19/25 22:02 650 mg
Q4HPRN PRN Administration
mild pain/ fever>100.5F
Alprazolam 0.5 mg 12/22/24 22:00 12/23/24 21:02
Alprazolam 0.5 Mg Tablet PO 01/19/25 21:59 0.5 mg
HS AI Administration
Atorvastatin Calcium 10 mg 12/22/24 22:00 12/23/24 21:02
Atorvastatin (Lipitor) 10 Mg Tablet PO 01/19/25 21:59 10 mg
HS AI Administration
Bisacodyl 10 mg 12/22/24 21:07
Bisacodyl 10 Mg Rectal Suppository RECTAL 01/19/25 21:06
[id number] PRN
constipation
Citalopram Hydrobromide 20 mg 12/23/24 08:00 12/24/24 07:38
Citalopram 20 Mg Tablet PO 01/20/25 07:59 20 mg
DAILY AI Administration
Heparin Sodium 5,000 units 12/22/24 21:07 12/24/24 07:39
Heparin 5,000 Units/Ml 1 Ml Vial SC 01/19/25 21:06 5,000 units
Q12 AI Administration
Pantoprazole Sodium 40 mg 12/23/24 08:00 12/24/24 07:38
Pantoprazole 40 Mg Delayed Release Tablet PO 01/20/25 07:59 40 mg
DAILY AI Administration
Polyethylene Glycol 17 grams 12/22/24 21:07
Polyethylene Glycol Powder 17 Grams Packet PO 01/19/25 21:06
DAILYPRN PRN
constipation
Senna/Docusate Sodium 1 tablet 12/22/24 21:07
Docusate W/Senna (Linnea-Colace) Tablet PO 01/19/25 21:06
BIDPRN PRN
constipation
Sodium Chloride 0 flush 12/22/24 22:00
Sodium Chloride 0.9% (Flush) Syringe IV 01/19/25 21:59
PER PROTOCOL AI
Solifenacin 5 mg 12/23/24 08:00 12/24/24 07:39
Solifenacin Succinate (Vesicare) 5 Mg Tablet PO 01/20/25 07:59 5 mg
DAILY AI Administration
Home Medications
-
Home Medications
citalopram 20 mg tablet 20 mg PO DAILY Depression 06/08/12
vit C 250 mg-vit E 90 mg-zinc 40 mg-copper 1 [id number] capsule (PreserVision AREDS-2) 1 cap PO BID Supplement 04/05/19
ascorbic acid (vitamin C) 500 mg tablet (Vitamin C) 500 mg PO DAILY Supplement 10/04/19
cetirizine 10 mg tablet 10 mg PO HS Allergies 10/04/19
alprazolam 0.5 mg tablet 0.5 mg PO HS Mental Health/Anxiety 05/05/23
pantoprazole 40 mg tablet,delayed release (Protonix) 40 mg PO DAILY Gastrointestinal Issue 05/05/23
calcium 500 mg (as carbonate)-vitamin D3 10 mcg (400 unit) tablet (Calcium 500 + D) 1 tab PO DAILY Supplement 12/22/24
cyanocobalamin (vitamin B-12) 1,000 mcg tablet 1,000 mcg PO HS Supplement 12/22/24
simvastatin 20 mg tablet 20 mg PO HS High Cholesterol 12/22/24
solifenacin 5 mg tablet 5 mg PO DAILY OAB 12/22/24
vitamin E 670 mg (1,000 unit) capsule 670 mg PO DAILY Supplement 12/22/24
--- NOTE | 2024-12-24 14:34 | PTOTSP ---
Speech Therapy Swallowing Assessment
Oral/pharyngeal swallow deemed within functional limits without evidence or strong concern for aspiration or pharyngeal stasis.
Recommend
1. Continue regular solids and thin liquids
2. Meds with liquid or larger pills whole in applesauce
3. ST will follow as able in acute care and is recommended at next level of care with focus on instruction in airway protection, cough strength and respiratory exercises.
[2024-12-24 15:16] VITALS: BP 132/63
[2024-12-24] MEDS: XANAX 0.5 MG PO (21:10)
[2024-12-24] MEDS: LIPITOR 10 MG PO (21:10)
[2024-12-24] MEDS: TYLENOL 650 MG PO (21:22)
[2024-12-24 22:55] VITALS: BP 148/77
[2024-12-25 05:39] VITALS: BMI 24.8
[2024-12-25 06:00] VITALS: BMI 25.4
[2024-12-25 07:14] LABS: % Basophils 0.4 % (0-2); % Eosinophils 5.6 % (0-6); % Lymphocytes 25.7 % (20.5-51.1); % Monocytes 12.7 % (1.7-9.3); % Neutrophils 54.6 % (42.2-75.2); Absolute Eosinophils 0.3 10^3/uL (0-0.7); Absolute Immature Granulocytes 0.1 10^3/uL (0-0.05); Absolute Lymphocytes 1.3 10^3/uL (1.2-3.4); Absolute Monocytes 0.7 10^3/uL (0.1-0.6); Absolute Neutrophils 2.8 10^3/uL (1.4-6.5); Hemoglobin 12.2 g/dL (12.0-16.0); Mean Corp Hgb Conc. 33.9 g/dL (33.0-37.0); Mean Corpuscular Hgb 30.3 pg (27.0-31.0); Mean Corpuscular Volume 89.3 fL (81.0-99.0); Mean Platelet Volume 8.7 fL (7.4-10.4); Nucleated Red Blood Cells % 0 %; Platelet Count 222 10^3/uL (130-400); Red Blood Cell Count 4.03 10^6/uL (4.20-5.40); Red Cell Dist. Width 12.7 % (11.5-14.5); White Blood Cell Count 5.2 10^3/uL (4.8-10.8)
--- NOTE | 2024-12-25 07:31 | W.PN.HOSP.TC ---
Addendum entered and electronically signed by Gato Pastrana MD 12/25/24 23:12:
Attending Addendum-
I saw and evaluated the patient. I reviewed the resident�s note and agree with findings and plan as documented in the resident�s note. Sub: Continues to feel weak and complains of urinary incontinence. 'My legs feel like jello' Seen with
and daughter/POA present. Denies numbness tingling vision changes other neuro sxs fevers chills. Full 12 point ROS reviewed and negative except as documented Exam: Vitals reviewed in chart GEN-NAD heart RRR lungs clear abd soft LE +1 edema b/l Neuro
AAO x 3 MS 4+/5
Plan:
# Bilateral lower extremity weakness
- generalized
- MS flare exacerbated by UTI?
- neuro input appreciated
- Head CT no acute intracranial abnormalities other than findings suggestive of right frontal and maxillary sinus sinusitis
- COVID flu negative
- check MRI per neuro
- PT OT consult
# MS
- not on meds
- taken off by neurologist due to age related reasons per daughter
- CTM
- neuro input appreciated
- PT OT
# Hyperlipidemia
- Continue simvastatin
# UTI
- urine cx - ecoli- sensi resulted
- with h/o abx allergies (hives) give fosfomycin x 1
- CTM
# History of anemia, chronic normocytic
- Hemoglobin stable
# History of insomnia
- Continue Xanax
# History of overactive bladder
- Continue solifenacin
# History of depression
- Continue citalopram
# History of seizure and intracranial hemorrhage
DVT prophylaxis heparin
Code- Full->DNR d/w POA and daughter
Dispo- PT rec SNF- DC in am
Time spent coordinating care, review of plan of care with resident, personally reviewed records in EMR, med rec, consults, notes, labs, radiology, d/w nursing POA and daughter � 52 mins
Original Note:
Today's Communication/Plan
-
Brain MRI
Start fosfomycin
Assessment / Plan
Assessment / Plan
79-year-old female with pmhx of MS, hx of intracranial hemorrhage and seizure, hyperlipidemia, hx of for R Hip Fx s/p ORIF right hip long gamma nail (2022) presenting to the ED for evaluation of weakness to bilateral lower extremities, initially
right leg but now left leg. She had a fall where she was unable to get herself from the ground and required family members to lift her up. Patient does have a history of falls resulting in bilateral hip fractures and ankle fractures secondary to
her MS, she denies any current pain. Family states that patient for the most part is quite independent and needs minimal assistance. Patient denies any headaches, visual changes/diplopia/blurred vision, focal numbness, chest pain, shortness of
breath or any other concerns. Patient was taken off of her MS medications at the age of 74 as family reports the neurologist said the medication would no longer be of much benefit.
# Bilateral lower extremity weakness
- Etiology unclear, metabolic vs MS flare versus stroke
- Head CT no acute intracranial abnormalities other than findings suggestive of right frontal and maxillary sinus sinusitis
- COVID flu negative
- No history of irregular rhythm. EKG normal sinus rhythm in the ED
- UA suggestive of infection
- Patient initially denied any urinary symptoms but on further questioning noted urgency although has a history of overactive bladder. She is allergic - hives - to several antibiotics including penicillin, sulfa, tetracycline.
- PT OT consulted --> recommending SNF
- Urine culture Ecoli. Will give fosfomycin one dose given hx of antibiotic allergies
- Neurology consult --> recommended brain MRI, pending
# Dysphagia
- Notified by nurse of difficulty swallowing large pills
- Aspiration precautions
- Speech evaluation - no evidence of dysphagia - continue current diet
# Hyperlipidemia
- Continue simvastatin
# History of anemia, chronic normocytic
- Hemoglobin stable
# History of insomnia
- Continue Xanax
# History of overactive bladder
- Continue solifenacin
# History of depression
- Continue citalopram
# History of seizure and intracranial hemorrhage
DVT prophylaxis heparin subcu
Anticipated Discharge: Within 24 hours
Subjective/Interval History
-
Date of Service: December 25, 2024
Objective Data
-
Labs:
Laboratory Results
12/25/24
06:33
WBC 5.2
Hgb 12.2
Hct 36.0 L
Plt Count 222
Sodium Pending
Potassium Pending
Chloride Pending
Carbon Dioxide Pending
BUN Pending
Creatinine Pending
Glucose Pending
Calcium Pending
Vital Signs:
Vital Signs
Temp Pulse Resp BP Pulse Ox
98.1 F 86 14 148/77 95
12/24/24 22:55 12/24/24 22:55 12/24/24 22:55 12/24/24 22:55 12/24/24 22:55
I&O
12/24/24 12/25/24 12/26/24
06:59 06:59 06:59
Intake Total 660 / 660 740 / 740
Output Total 1550 / 1550 650 / 650
Balance -890 / -890 90 / 90
Review of Systems
-
History Source: Patient
Constitutional: Reports No Symptoms
EENT: Reports No Symptoms Reported
Respiratory: Reports No Symptoms
Cardiac: Reports No Symptoms
Abdomen/GI: Reports No Symptoms
Genitourinary: Reports Frequency
Musculoskeletal: Reports No Symptoms
Skin: Reports No Symptoms
Neuro: Reports No Symptoms
Endocrine: Reports No Symptoms
Hematologic / Lymphatic: Reports No Symptoms
Allergy / Immunology: Reports No Symptoms
Physical Exam
-
General: Well Developed, Well Nourished, No Apparent Distress and Comfortable
HEENT: Normocephalic
Respiratory: Clear to Auscultation
Cardiac: Regular Rhythm and S1/S2
GI: Soft, Nontender, Nondistended and Normal Bowel Sounds
Genito-urinary: No Costovertebral Tender and Other (Dark urine)
Musculoskeletal: No Clubbing, No Cyanosis and No Edema
Skin: Warm
Neuro: Awake, Alert, Oriented, AO x 3 and DTR's Intact & Symmetrica
Hematologic / Lymphatic: No Lymphadenopathy
Psych: Calm
[2024-12-25 07:51] VITALS: BP 143/79
[2024-12-25 08:03] LABS: Blood Urea Nitrogen 13 mg/dl (7-17); Calcium 9.1 mg/dl (8.4-10.2); Carbon Dioxide 24 mmol/L (22-30); Chloride 107 mmol/L (98-107); Estimated Creatinine Clearance 62 ml/min; Glucose 106 mg/dl (70-99); Potassium 4.3 mmol/L (3.5-5.1); Sodium 140 mmol/L (135-145); eGFR > 60.00
[2024-12-25] MEDS: VESICARE 5 MG PO (09:17)
[2024-12-25] MEDS: PROTONIX 40 MG PO (09:18)
[2024-12-25] MEDS: HEPARIN 5000 UNITS SC ×2 (09:18→21:08)
[2024-12-25] MEDS: CELEXA 20 MG PO (09:18)
--- NOTE | 2024-12-25 10:15 | W.PN.NEURO.1 ---
Today's Communication / Plan
-
.
Subjective/Objective
Subjective Data
Date of Service: December 25, 2024
Neurology follow-up note.
The patient reports no complaints. No recurrent leg weakness. She denies having headaches or change in vision or sensation.
Labs: UA culture ()�E. coli
Brain MRI is pending.
PMG: MS, h/o lumbar stenosis, traumatic ICH, seizure DO, ambulatory dysfunction HLD, GERD, NANETTE, insomnia
PSH: Lumbar laminectomy, cholecystectomy, L JUAN, lower back procedure 2009, right ankle ORIF 2019, tubal ligation 1971, lumpectomy 2004
SH: , retired accredited legal secretary, ambulates with a walker, does not drive
FH: Not contributory
All: Sulfas, penicillins, oxytetracycline, erythromycin, codeine,
ROS: Negative for headache, change in vision, chronic imbalance, urinary incontinence
General: Well developed. In no acute distress.
Cardio: Regular rate and rhythm without murmur. Extremities are without cyanosis or edema.
Neuro:
Mental Status: Alert, oriented to self, location, year, month. Impaired attention. Slow speech. No hemineglect.
Cranial Nerves: Pupils are equally round and reactive to light. EOMs full. Visual hauser full to confrontation. No ptosis. No nystagmus. Face symmetric. Impaired hearing AU. The palate elevated well. SCMs and traps 5/5. Tongue midline.
Moderate to severe dysarthria
Motor: Increased motor tone in lower extremities
Reflexes: 3+ throughout, grasp�positive bilaterally
Sensory: Limited exam due to poor attention
Coordination: No dysmetria or tremor.
Gait: deferred
Bilateral pes cavus and hammertoes
Assessment and Plan:
I. Transient worsening of paraparesis.
II. Chronic thoracic myelopathy
III. History of multiple sclerosis
IV. Encephalopathy (demyelinating, infectious)
- Fall precautions
- Obtain brain MRI without nanette to rule out bifrontal infarcts
- PT
- Will follow-up
I personally reviewed all radiology and labs along with past medical records pertinent to current medical problems. Total time spent in patient care is 37 minutes.
Thank you for allowing us to participate in the care of this patient. We will continue to follow. Please do not hesitate to contact us with any questions or concerns.
Objective Data
Vital Signs
Temp Pulse Resp BP Pulse Ox
36.5 C 73 16 143/79 99
12/25/24 07:51 12/25/24 07:51 12/25/24 07:51 12/25/24 07:51 12/25/24 07:51
Lab Results
12/25/24 06:33
12/25/24 06:33
Sodium 140 mmol/L (135-145) 12/25/24 06:33
Potassium 4.3 mmol/L (3.5-5.1) 12/25/24 06:33
BUN 13 mg/dl (7-17) 12/25/24 06:33
Glucose 106 mg/dl (70-99) H 12/25/24 06:33
Calcium 9.1 mg/dl (8.4-10.2) 12/25/24 06:33
Patient Allergies
codeine [Codeine] Allergy (Verified 12/22/24 15:09)
Unknown
erythromycin base [Erythromycin Base] Allergy (Verified 12/22/24 15:09)
Unknown
oxytetracycline [From Terramycin] Allergy (Verified 12/22/24 15:09)
Unknown
oxytetracycline HCl [From Terramycin] Allergy (Verified 12/22/24 15:09)
Unknown
Penicillins Allergy (Verified 12/22/24 15:09)
Unknown
Sulfa (Sulfonamide Antibiotics) [Sulfa(Sulfonamide Antibiotics)] Allergy (Verified 12/22/24 15:09)
Unknown
Tetanus Vaccines and Toxoid [Tetanus] Allergy (Verified 12/22/24 15:09)
Unknown
Vital Signs and Labs
-
Vital Signs and Labs:
Vital Signs
Temp Pulse Resp BP Pulse Ox
36.5 C 73 16 143/79 99
12/25/24 07:51 12/25/24 07:51 12/25/24 07:51 12/25/24 07:51 12/25/24 07:51
Lab Results
12/25/24 06:33
12/25/24 06:33
Sodium 140 mmol/L (135-145) 12/25/24 06:33
Potassium 4.3 mmol/L (3.5-5.1) 12/25/24 06:33
BUN 13 mg/dl (7-17) 12/25/24 06:33
Glucose 106 mg/dl (70-99) H 12/25/24 06:33
Calcium 9.1 mg/dl (8.4-10.2) 12/25/24 06:33
Medications
-
Medications:
Generic Name Dose Route Start Last Admin
Trade Name Freq PRN Reason Stop Dose Admin
Acetaminophen 650 mg 12/22/24 22:03 12/24/24 21:22
Acetaminophen 325 Mg Tablet PO 01/19/25 22:02 650 mg
Q4HPRN PRN Administration
mild pain/ fever>100.5F
Alprazolam 0.5 mg 12/22/24 22:00 12/24/24 21:10
Alprazolam 0.5 Mg Tablet PO 01/19/25 21:59 0.5 mg
HS AI Administration
Atorvastatin Calcium 10 mg 12/22/24 22:00 12/24/24 21:10
Atorvastatin (Lipitor) 10 Mg Tablet PO 01/19/25 21:59 10 mg
HS AI Administration
Bisacodyl 10 mg 12/22/24 21:07
Bisacodyl 10 Mg Rectal Suppository RECTAL 01/19/25 21:06
[id number] PRN
constipation
Cefuroxime Axetil 500 mg 12/25/24 10:06
Cefuroxime 500 Mg Tablet PO
BID AI
Citalopram Hydrobromide 20 mg 12/23/24 08:00 12/25/24 09:18
Citalopram 20 Mg Tablet PO 01/20/25 07:59 20 mg
DAILY AI Administration
Heparin Sodium 5,000 units 12/22/24 21:07 12/25/24 09:18
Heparin 5,000 Units/Ml 1 Ml Vial SC 01/19/25 21:06 5,000 units
Q12 AI Administration
Pantoprazole Sodium 40 mg 12/23/24 08:00 12/25/24 09:18
Pantoprazole 40 Mg Delayed Release Tablet PO 01/20/25 07:59 40 mg
DAILY AI Administration
Polyethylene Glycol 17 grams 12/22/24 21:07
Polyethylene Glycol Powder 17 Grams Packet PO 01/19/25 21:06
DAILYPRN PRN
constipation
Senna/Docusate Sodium 1 tablet 12/22/24 21:07
Docusate W/Senna (Linnea-Colace) Tablet PO 01/19/25 21:06
BIDPRN PRN
constipation
Sodium Chloride 0 flush 12/22/24 22:00
Sodium Chloride 0.9% (Flush) Syringe IV 01/19/25 21:59
PER PROTOCOL AI
Solifenacin 5 mg 12/23/24 08:00 12/25/24 09:17
Solifenacin Succinate (Vesicare) 5 Mg Tablet PO 01/20/25 07:59 5 mg
DAILY AI Administration
Home Medications
-
Home Medications
citalopram 20 mg tablet 20 mg PO DAILY Depression 06/08/12
vit C 250 mg-vit E 90 mg-zinc 40 mg-copper 1 [id number] capsule (PreserVision AREDS-2) 1 cap PO BID Supplement 04/05/19
ascorbic acid (vitamin C) 500 mg tablet (Vitamin C) 500 mg PO DAILY Supplement 10/04/19
cetirizine 10 mg tablet 10 mg PO HS Allergies 10/04/19
alprazolam 0.5 mg tablet 0.5 mg PO HS Mental Health/Anxiety 05/05/23
pantoprazole 40 mg tablet,delayed release (Protonix) 40 mg PO DAILY Gastrointestinal Issue 05/05/23
calcium 500 mg (as carbonate)-vitamin D3 10 mcg (400 unit) tablet (Calcium 500 + D) 1 tab PO DAILY Supplement 12/22/24
cyanocobalamin (vitamin B-12) 1,000 mcg tablet 1,000 mcg PO HS Supplement 12/22/24
simvastatin 20 mg tablet 20 mg PO HS High Cholesterol 12/22/24
solifenacin 5 mg tablet 5 mg PO DAILY OAB 12/22/24
vitamin E 670 mg (1,000 unit) capsule 670 mg PO DAILY Supplement 12/22/24
--- NOTE | 2024-12-25 11:13 | CM ---
Patient seen at bedside
Referrals in [facility]
no preauth needed
PLAN: SNF, pending bed availability
[2024-12-25] MEDS: MONUROL 3 GM PO (12:25)
[2024-12-25 15:02] VITALS: BP 130/69
[2024-12-25] MEDS: LIPITOR 10 MG PO (21:08)
[2024-12-25] MEDS: XANAX 0.5 MG PO (21:08)
[2024-12-25] MEDS: TYLENOL 650 MG PO (23:04)
[2024-12-25 23:21] VITALS: BP 145/81
[2024-12-26 04:58] VITALS: BMI 24.7
[2024-12-26 06:52] LABS: % Basophils 0.4 % (0-2); % Eosinophils 4.9 % (0-6); % Immature Granulocytes 1.3 % (0-0.5); % Monocytes 12.7 % (1.7-9.3); % Neutrophils 51.7 % (42.2-75.2); Absolute Eosinophils 0.2 10^3/uL (0-0.7); Absolute Immature Granulocytes 0.1 10^3/uL (0-0.05); Absolute Lymphocytes 1.4 10^3/uL (1.2-3.4); Absolute Monocytes 0.6 10^3/uL (0.1-0.6); Absolute Neutrophils 2.4 10^3/uL (1.4-6.5); Hematocrit 34.5 % (37.0-47.0); Hemoglobin 11.6 g/dL (12.0-16.0); Mean Corp Hgb Conc. 33.6 g/dL (33.0-37.0); Mean Corpuscular Hgb 30.1 pg (27.0-31.0); Mean Corpuscular Volume 89.6 fL (81.0-99.0); Mean Platelet Volume 8.4 fL (7.4-10.4); Nucleated Red Blood Cells % 0 %; Platelet Count 211 10^3/uL (130-400); Red Blood Cell Count 3.85 10^6/uL (4.20-5.40); Red Cell Dist. Width 12.8 % (11.5-14.5); White Blood Cell Count 4.7 10^3/uL (4.8-10.8)
[2024-12-26 07:29] LABS: Blood Urea Nitrogen 14 mg/dl (7-17); Calcium 9.2 mg/dl (8.4-10.2); Carbon Dioxide 25 mmol/L (22-30); Chloride 109 mmol/L (98-107); Estimated Creatinine Clearance 62 ml/min; Glucose 110 mg/dl (70-99); Sodium 142 mmol/L (135-145); eGFR > 60.00
[2024-12-26 07:47] VITALS: BP 132/69
--- NOTE | 2024-12-26 07:49 | W.PN.HOSP.TC ---
Addendum entered and electronically signed by Gato Pastrana MD 12/26/24 23:03:
Attending Addendum-
I saw and evaluated the patient. I reviewed the resident�s note and agree with findings and plan as documented in the resident�s note. Sub: Less weak today. no further urinary sxs. Seen with and daughter present. Denies numbness tingling
vision changes other neuro sxs fevers chills. ' Im ready to go to rehab.' Full 12 point ROS reviewed and negative except as documented Exam: Vitals reviewed in chart GEN-NAD heart RRR lungs clear abd soft LE +1 edema b/l Neuro AAO x 3 MS 4+/5
Plan:
# Bilateral lower extremity weakness
- check MRI spine as OP
- generalized
- neuro input appreciated
- Head CT no acute intracranial abnormalities other than findings suggestive of right frontal and maxillary sinus sinusitis
- COVID flu negative
- MRI 12/25
There is no evidence of acute infarction.
There is extensive, fairly symmetric T2/FLAIR hyperintense signal throughout the bilateral cerebral hemispheric white matter which is nonspecific and can be seen with severe chronic small vessel ischemic disease, given the reported history of MS
this may be related in part to demyelinating disease. Further evaluation of the brain with and without contrast may be of utility to evaluate for possible acute demyelinating lesions.
There is extensive right paranasal sinus and a moderate right mastoid effusion which may represent acute sinusitis.
- PT OT ->SNF
# MS
- not on meds
- taken off by neurologist due to age related reasons per daughter
- CTM
- neuro input appreciated
- PT OT
# Hyperlipidemia
- Continue simvastatin
# UTI
- urine cx - ecoli- sensi resulted
- with h/o abx allergies (hives) given fosfomycin x 1
# History of anemia, chronic normocytic
- Hemoglobin stable
# History of insomnia
- Continue Xanax
# History of overactive bladder
- Continue solifenacin
# History of depression
- Continue citalopram
# History of seizure and intracranial hemorrhage
DVT prophylaxis heparin
Code- Full->DNR d/w POA and daughter
Dispo- DC to [facility]
Time spent coordinating care, DC planning, review of DC plan of care with resident, transition of care, review of records, med rec/scripts sent electronically, consults, notes, d/w consultants, nursing, family, and CM� 32 mins
Original Note:
Today's Communication/Plan
-
Discharge to SNF
Outpt f/u with neurology
Assessment / Plan
Assessment / Plan
79-year-old female with pmhx of MS, hx of intracranial hemorrhage and seizure, hyperlipidemia, hx of for R Hip Fx s/p ORIF right hip long gamma nail (2022) presenting to the ED for evaluation of weakness to bilateral lower extremities, initially
right leg but now left leg. She had a fall where she was unable to get herself from the ground and required family members to lift her up. Patient does have a history of falls resulting in bilateral hip fractures and ankle fractures secondary to
her MS, she denies any current pain. Family states that patient for the most part is quite independent and needs minimal assistance. Patient denies any headaches, visual changes/diplopia/blurred vision, focal numbness, chest pain, shortness of
breath or any other concerns. Patient was taken off of her MS medications at the age of 74 as family reports the neurologist said the medication would no longer be of much benefit.
# Bilateral lower extremity weakness
- Etiology unclear, likely toxic metabolic encephalopathy 2/2 UTI vs less likely MS flare
- Head CT no acute intracranial abnormalities other than findings suggestive of right frontal and maxillary sinus sinusitis
- COVID flu negative
- No history of irregular rhythm. EKG normal sinus rhythm in the ED
- Patient initially denied any urinary symptoms but on further questioning noted urgency although has a history of overactive bladder. She is allergic - hives - to several antibiotics including penicillin, sulfa, tetracycline.
- PT OT consulted --> recommending SNF
- Brain MRI:
There is no evidence of acute infarction.
There is extensive, fairly symmetric T2/FLAIR hyperintense signal throughout the bilateral cerebral hemispheric white matter which is nonspecific and can be seen with severe chronic small vessel ischemic disease, given the reported history of MS
this may be related in part to demyelinating disease. Further evaluation of the brain with and without contrast may be of utility to evaluate for possible acute demyelinating lesions.
Small foci of encephalomalacia within the inferior left frontal lobe and lateral left temporal lobe.
There is extensive right paranasal sinus and a moderate right mastoid effusion which may represent acute sinusitis.
- Neurology following --> recommending outpt f/u, may consider outpt LS MRI
- Patient medically stable for discharge to SNF
# Bacteriuria
- UA suggestive of infection
- Patient initially denied any urinary symptoms but on further questioning noted urgency and burning although has a history of overactive bladder. She is allergic - hives - to several antibiotics including penicillin, sulfa, tetracycline.
- Urine culture Ecoli. s/p fosfomycin one dose given hx of antibiotic allergies - patient notes symptoms improving.
# Dysphagia
- Notified by nurse of difficulty swallowing large pills
- Aspiration precautions
- Speech evaluation - no evidence of dysphagia - continue current diet
# Hyperlipidemia
- Continue simvastatin
# History of anemia, chronic normocytic
- Hemoglobin stable
# History of insomnia
- Continue Xanax
# History of overactive bladder
- Continue solifenacin
# History of depression
- Continue citalopram
# History of seizure and intracranial hemorrhage
DVT prophylaxis heparin subcu
Anticipated Discharge: Today
Subjective/Interval History
-
Date of Service: December 26, 2024
Objective Data
-
Labs:
Laboratory Results
12/26/24
06:38
WBC 4.7 L
Hgb 11.6 L
Hct 34.5 L
Plt Count 211
Sodium 142
Potassium 4.0
Chloride 109 H
Carbon Dioxide 25
BUN 14
Creatinine 0.5 L
Glucose 110 H
Calcium 9.2
Vital Signs:
Vital Signs
Temp Pulse Resp BP Pulse Ox
97.7 F 84 18 132/69 96
12/26/24 07:47 12/26/24 07:47 12/26/24 07:47 12/26/24 07:47 12/26/24 07:47
I&O
12/25/24 12/26/24 12/27/24
06:59 06:59 06:59
Intake Total 740 / 740 360 / 360
Output Total 650 / 650 250 / 250
Balance 90 / 90 110 / 110
[2024-12-26] MEDS: HEPARIN 5000 UNITS SC (08:02)
[2024-12-26] MEDS: CELEXA 20 MG PO (08:03)
[2024-12-26] MEDS: VESICARE 5 MG PO (08:03)
[2024-12-26] MEDS: PROTONIX 40 MG PO (08:03)
--- NOTE | 2024-12-26 08:58 | W.PN.NEURO.1 ---
Today's Communication / Plan
-
.
Subjective/Objective
Subjective Data
Date of Service: December 26, 2024
Neurology follow-up note.
The patient reports no complaints. No recurrent leg weakness. No reports of radicular back pain, muscle cramps or saddle anesthesia.
Brain MRI no acute abnormalities.
PMG: MS, h/o lumbar stenosis, traumatic ICH, seizure DO, ambulatory dysfunction HLD, GERD, NANETTE, insomnia
PSH: Lumbar laminectomy, cholecystectomy, L JUAN, lower back procedure 2009, right ankle ORIF 2019, tubal ligation 1971, lumpectomy 2004
SH: , retired workers compensation legal secretary, ambulates with a walker, does not drive
FH: Not contributory
All: Sulfas, penicillins, oxytetracycline, erythromycin, codeine,
ROS: Negative for headache, change in vision, chronic imbalance, urinary incontinence
General: Well developed. In no acute distress.
Cardio: Regular rate and rhythm without murmur. Extremities are without cyanosis or edema.
Neuro:
Mental Status: Alert, oriented to self, location, year, month. Impaired attention. Slow speech. No hemineglect.
Cranial Nerves: Pupils are equally round and reactive to light. EOMs full. Visual hauser full to confrontation. No ptosis. No nystagmus. Face symmetric. Impaired hearing AU. The palate elevated well. SCMs and traps 5/5. Tongue midline.
Moderate to severe dysarthria
Motor: Increased motor tone in lower extremities
Reflexes: 3+ throughout, grasp�positive bilaterally
Sensory: Limited exam due to poor attention
Coordination: No dysmetria or tremor.
Gait: deferred
Bilateral pes cavus and hammertoes
Assessment and Plan:
I. Transient worsening of chronic spastic paraparesis.
II. Chronic thoracic myelopathy
III. History of multiple sclerosis
IV. Encephalopathy (demyelinating, infectious)
- Fall precautions
- PT
- May consider outpatient LS MRI
- Outpatient neurology follow-up
- Please recall neurology service with any questions or concerns
I personally reviewed all radiology and labs along with past medical records pertinent to current medical problems. Total time spent in patient care is 35 minutes.
Thank you for allowing us to participate in the care of this patient. Please do not hesitate to contact us with any questions or concerns.
Objective Data
Vital Signs
Temp Pulse Resp BP Pulse Ox
36.5 C 84 18 132/69 96
12/26/24 07:47 12/26/24 07:47 12/26/24 07:47 12/26/24 07:47 12/26/24 07:47
Lab Results
12/26/24 06:38
12/26/24 06:38
Sodium 142 mmol/L (135-145) 12/26/24 06:38
Potassium 4.0 mmol/L (3.5-5.1) 12/26/24 06:38
BUN 14 mg/dl (7-17) 12/26/24 06:38
Glucose 110 mg/dl (70-99) H 12/26/24 06:38
Calcium 9.2 mg/dl (8.4-10.2) 12/26/24 06:38
Patient Allergies
codeine [Codeine] Allergy (Verified 12/22/24 15:09)
Unknown
erythromycin base [Erythromycin Base] Allergy (Verified 12/22/24 15:09)
Unknown
oxytetracycline [From Terramycin] Allergy (Verified 12/22/24 15:09)
Unknown
oxytetracycline HCl [From Terramycin] Allergy (Verified 12/22/24 15:09)
Unknown
Penicillins Allergy (Verified 12/22/24 15:09)
Unknown
Sulfa (Sulfonamide Antibiotics) [Sulfa(Sulfonamide Antibiotics)] Allergy (Verified 12/22/24 15:09)
Unknown
Tetanus Vaccines and Toxoid [Tetanus] Allergy (Verified 12/22/24 15:09)
Unknown
Vital Signs and Labs
-
Vital Signs and Labs:
Vital Signs
Temp Pulse Resp BP Pulse Ox
36.5 C 84 18 132/69 96
12/26/24 07:47 12/26/24 07:47 12/26/24 07:47 12/26/24 07:47 12/26/24 07:47
Lab Results
12/26/24 06:38
12/26/24 06:38
Sodium 142 mmol/L (135-145) 12/26/24 06:38
Potassium 4.0 mmol/L (3.5-5.1) 12/26/24 06:38
BUN 14 mg/dl (7-17) 12/26/24 06:38
Glucose 110 mg/dl (70-99) H 12/26/24 06:38
Calcium 9.2 mg/dl (8.4-10.2) 12/26/24 06:38
Medications
-
Medications:
Generic Name Dose Route Start Last Admin
Trade Name Freq PRN Reason Stop Dose Admin
Acetaminophen 650 mg 12/22/24 22:03 12/25/24 23:04
Acetaminophen 325 Mg Tablet PO 01/19/25 22:02 650 mg
Q4HPRN PRN Administration
mild pain/ fever>100.5F
Alprazolam 0.5 mg 12/22/24 22:00 12/25/24 21:08
Alprazolam 0.5 Mg Tablet PO 01/19/25 21:59 0.5 mg
HS AI Administration
Atorvastatin Calcium 10 mg 12/22/24 22:00 12/25/24 21:08
Atorvastatin (Lipitor) 10 Mg Tablet PO 01/19/25 21:59 10 mg
HS AI Administration
Bisacodyl 10 mg 12/22/24 21:07
Bisacodyl 10 Mg Rectal Suppository RECTAL 01/19/25 21:06
[id number] PRN
constipation
Citalopram Hydrobromide 20 mg 12/23/24 08:00 12/26/24 08:03
Citalopram 20 Mg Tablet PO 01/20/25 07:59 20 mg
DAILY AI Administration
Heparin Sodium 5,000 units 12/22/24 21:07 12/26/24 08:02
Heparin 5,000 Units/Ml 1 Ml Vial SC 01/19/25 21:06 5,000 units
Q12 AI Administration
Pantoprazole Sodium 40 mg 12/23/24 08:00 12/26/24 08:03
Pantoprazole 40 Mg Delayed Release Tablet PO 01/20/25 07:59 40 mg
DAILY AI Administration
Polyethylene Glycol 17 grams 12/22/24 21:07
Polyethylene Glycol Powder 17 Grams Packet PO 01/19/25 21:06
DAILYPRN PRN
constipation
Senna/Docusate Sodium 1 tablet 12/22/24 21:07
Docusate W/Senna (Linnea-Colace) Tablet PO 01/19/25 21:06
BIDPRN PRN
constipation
Sodium Chloride 0 flush 12/22/24 22:00
Sodium Chloride 0.9% (Flush) Syringe IV 01/19/25 21:59
PER PROTOCOL AI
Solifenacin 5 mg 12/23/24 08:00 12/26/24 08:03
Solifenacin Succinate (Vesicare) 5 Mg Tablet PO 01/20/25 07:59 5 mg
DAILY AI Administration
Home Medications
-
Home Medications
citalopram 20 mg tablet 20 mg PO DAILY Depression 06/08/12
vit C 250 mg-vit E 90 mg-zinc 40 mg-copper 1 [id number] capsule (PreserVision AREDS-2) 1 cap PO BID Supplement 04/05/19
ascorbic acid (vitamin C) 500 mg tablet (Vitamin C) 500 mg PO DAILY Supplement 10/04/19
cetirizine 10 mg tablet 10 mg PO HS Allergies 10/04/19
alprazolam 0.5 mg tablet 0.5 mg PO HS Mental Health/Anxiety 05/05/23
pantoprazole 40 mg tablet,delayed release (Protonix) 40 mg PO DAILY Gastrointestinal Issue 05/05/23
calcium 500 mg (as carbonate)-vitamin D3 10 mcg (400 unit) tablet (Calcium 500 + D) 1 tab PO DAILY Supplement 12/22/24
cyanocobalamin (vitamin B-12) 1,000 mcg tablet 1,000 mcg PO HS Supplement 12/22/24
simvastatin 20 mg tablet 20 mg PO HS High Cholesterol 12/22/24
solifenacin 5 mg tablet 5 mg PO DAILY OAB 12/22/24
vitamin E 670 mg (1,000 unit) capsule 670 mg PO DAILY Supplement 12/22/24
[2024-12-26] MEDS: SENOKOT-S 1 TABLET PO (09:28)
--- NOTE | 2024-12-26 10:44 | CM ---
Addendum entered by Jackelyn Ford 12/26/24 13:29:
5PM Transport set - notified [facility] at [facility]
Left message with daughter Jaja
transportation forms on chart
Original Note:
Bed available at [facility] today - spoke with Court Liaison
Patient prefers [facility] as she states has been there in past
tt hospitalist regarding COVID test order as this is their protocol
IMM explained & signed.
PLAN: [facility]
Report #: [phone]
Fax #: [phone]
[2024-12-26 12:19] LABS: COVID-19 Antigen Negative (Negative)
--- NOTE | 2024-12-26 12:29 | PN.CDI ---
CDI
- -
CDI:
Physician Documentation Request
Admit Date: 12/22/24 19:45
Dear Doctor Meseret,
Clinical Indicators:
Patient admitted with weakness to bilateral lower extremities.
12/22 H & P, 'B/L Luis weakness Lt > Rt altered from prior baseline DDX: MS flare up vs TME'
12/25 Neurology PN, 'Encephalopathy (demyelinating, infectious)'
12/25 PN, '-MS flare exacerbated by UTI?...Bilateral lower extremity weakness- Etiology unclear, metabolic vs MS flare...'
Based on the above, could you clarify in the progress notes, the appropriate diagnosis, if significant, that supports the above abnormalities and additional evaluation, monitoring and/or treatment rendered:
Acute metabolic encephalopathy
Toxic metabolic encephalopathy
Encephalopathy was ruled out.
Other, please specify
Use of terms such as suspected, likely, concern for, or probable (associated with a specific diagnosis that is being evaluated, monitored, or treated as if it exists) are acceptable and can be coded in the inpatient setting, when documented at the
time of discharge.
Thank you,
Leticia Frost RN BSN
CDI Specialist
available via tiger text
Please use your independent medical judgment in providing your response.
[2024-12-26 15:12] VITALS: BP 150/81
--- NOTE | 2024-12-26 17:00 | W.DCSUMMARY ---
Addendum entered and electronically signed by Gato Pastrana MD 12/26/24 23:04:
Read, reviewed, and agree. See same day progress note for additional details.
Hitesh Pastrana MD
Original Note:
Documented by User: Jennifer Bagley MD, Resident 12/26/24 17:37
Discharge Summary
Discharge Data
Date of Admission: 12/22/24
Date of Discharge: 12/26/24
-
Pending Results: No
Hospital Course
Discharging Physician : Dr. Jennifer Carl, Dr. Gato Cuellar
Disposition : SNF
Primary care physician : Dr. Delmer Terry
Principal Discharge diagnosis :
Bilateral lower extremity weakness
Asymptomatic bacteriuria
Chronic Discharge diagnosis :
Hyperlipidemia
History of depression
History of overactive bladder
History of insomnia
History of anemia
History of intracranial hemorrhage and seizure
History of diffuse osteoporosis
Hospital Course :
79-year-old female with past medical history of MS, right hip fracture status post ORIF (2022) presenting to the ED for evaluation of bilateral lower extremity weakness and subsequent fall.
# Bilateral lower extremity weakness
- Etiology unclear, likely metabolic
- No focal deficits on exam
- No reports of radicular back pain, muscle cramps or saddle anesthesia
- Head CT no acute intracranial abnormalities other than findings suggestive of right frontal and maxillary sinus sinusitis
- Patient has had previous falls and balance issues secondary to MS -- per patient and family, she was taken off of her MS medications at the age of 74 as the neurologist said the medication would no longer be of much benefit.
- Speech evaluation: No evidence or strong concern for aspiration or pharyngeal stasis
- PT OT recommended SNF
- Neurology on board, recommended brain MRI -- no evidence of acute infarct
- Recommended outpatient follow-up with neurology. Per neurology, may consider outpatient lumbar spine MRI
# Symptomatic bacteriuria
- Urinalysis suggestive of infection
- Patient has history of allergies (urticaria) to several antibiotics including penicillin, tetracycline, sulfas
- Urine culture: Pansensitive E. coli
- Given history of allergies, treated with a single dose of fosfomycin
# Hypokalemia
- Repleted
# History of anemia
- Hemoglobin stable
# Hyperlipidemia
- No changes were made to ACLS NURSE meds
# History of depression
- No changes were made to ACLS NURSE meds
# History of overactive bladder
- No changes were made to ACLS NURSE meds
# History of insomnia
- No changes were made to ACLS NURSE meds
# History of intracranial hemorrhage and seizure
# History of diffuse osteoporosis
Important imaging findings :
Head CT (12/22/2024):
No acute intracranial abnormality noted.
There is opacification of the right maxillary sinus and ethmoid air cells with partial opacification of the right frontal sinus which may represent acute sinusitis.
Brain MRI (12/25/24):
There is no evidence of acute infarction.
There is extensive, fairly symmetric T2/FLAIR hyperintense signal throughout the bilateral cerebral hemispheric white matter which is nonspecific and can be seen with severe chronic small vessel ischemic disease, given the reported history of MS
this may be related in part to demyelinating disease. Further evaluation of the brain with and without contrast may be of utility to evaluate for possible acute demyelinating lesions.
Small foci of encephalomalacia within the inferior left frontal lobe and lateral left temporal lobe.
There is extensive right paranasal sinus and a moderate right mastoid effusion which may represent acute sinusitis.
Discharge Plan
-
Patient Disposition: [facility]
Discharge Diagnosis/Procedures: Bilateral lower extremity weakness, uncomplicated urinary tract infection, hypokalemia, history of depression, hyperlipidemia, overactive bladder, insomnia, chronic anemia, history of intracranial hemorrhage and
seizure
Condition: Fair
Diet: As tolerated and Regular
Activity: As tolerated
Driving Restrictions: As prior to admission
Bathing Restrictions: OK to Shower
Other Services: PT and OT
Referrals:
Delmer Terry MD [Family Provider] -
Additional Discharge Medication Instructions: You should follow-up with your neurologist for further evaluation.
Prescriptions:
Continued
citalopram 20 MG tablet
20 mg PO DAILY
PreserVision AREDS-2 1 EACH capsule
1 cap PO BID
cetirizine 10 MG tablet
10 mg PO HS
ascorbic acid (vitamin C) [Vitamin C] 500 MG tablet
500 mg PO DAILY
alprazolam 0.5 MG tablet
0.5 mg PO HS
pantoprazole [Protonix] 40 mg Tablet,Delayed Release (Dr/Ec)
40 mg PO DAILY
vitamin E 670 mg (1,000 unit) Capsule
670 mg PO DAILY
simvastatin 20 mg Tablet
20 mg PO HS
solifenacin 5 mg Tablet
5 mg PO DAILY
calcium carbonate-vitamin D3 [Calcium 500 + D] 500 mg-10 mcg (400 unit) Tablet
1 tab PO DAILY
cyanocobalamin (vitamin B-12) 1,000 MCG tablet
1,000 mcg PO HS
Discharge Orders:
Discharge Patient (As Directed); Ordered 12/26/24
Ordered By: Jennifer Bagley
Discharge Date and Time
Discharge Date/Time: 12/26/24 19:44
Print Language: ROMANSH

Documented by User: Gato Pastrana MD 12/26/24 23:00
Discharge Summary
Discharge Data
Date of Admission: 12/22/24
Date of Discharge: 12/26/24
Discharge Plan
-
Patient Disposition: [facility]SNF
Discharge Diagnosis/Procedures: Bilateral lower extremity weakness, uncomplicated urinary tract infection, hypokalemia, history of depression, hyperlipidemia, overactive bladder, insomnia, chronic anemia, history of intracranial hemorrhage and
seizure
Condition: Fair
Diet: As tolerated and Regular
Activity: As tolerated
Driving Restrictions: As prior to admission
Bathing Restrictions: OK to Shower
Other Services: PT and OT
Referrals:
Delmer Terry MD [Family Provider] -
Additional Discharge Medication Instructions: You should follow-up with your neurologist for further evaluation.
Prescriptions:
Continued
citalopram 20 MG tablet
20 mg PO DAILY
PreserVision AREDS-2 1 EACH capsule
1 cap PO BID
cetirizine 10 MG tablet
10 mg PO HS
ascorbic acid (vitamin C) [Vitamin C] 500 MG tablet
500 mg PO DAILY
alprazolam 0.5 MG tablet
0.5 mg PO HS
pantoprazole [Protonix] 40 mg Tablet,Delayed Release (Dr/Ec)
40 mg PO DAILY
vitamin E 670 mg (1,000 unit) Capsule
670 mg PO DAILY
simvastatin 20 mg Tablet
20 mg PO HS
solifenacin 5 mg Tablet
5 mg PO DAILY
calcium carbonate-vitamin D3 [Calcium 500 + D] 500 mg-10 mcg (400 unit) Tablet
1 tab PO DAILY
cyanocobalamin (vitamin B-12) 1,000 MCG tablet
1,000 mcg PO HS
Discharge Orders:
Discharge Patient (As Directed); Ordered 12/26/24
Ordered By: Jennifer Bagley
Discharge Date and Time
Discharge Date/Time: 12/26/24 19:44
Print Language: ROMANSH
[2024-12-26 19:16] VITALS: BP 157/86
== END 2024-12-26 19:44 | DRG 689 ==
LOC: 3 WEST ACU 19:45
PROVIDERS: Physician Assistant Medical; ADMITTING PHYSICIAN Internal Medicine; ATTENDING PHYSICIAN Family Medicine; CONSULT PHYSICIAN Psychiatry & Neurology Neurology; EMERGENCY PHYSICIAN Student in an Organized Health Care Education/Training Program; FAMILY PHYSICIAN Family Medicine
DX: N39.0 Urinary tract infection, site not specified (principal); G92.8 Other toxic encephalopathy; B96.20 Unspecified Escherichia coli [E. coli] as the cause of diseases classified elsewhere; G35 Multiple sclerosis; E78.00 Pure hypercholesterolemia, unspecified; E87.6 Hypokalemia; F32.A Depression, unspecified; G93.89 Other specified disorders of brain; Z91.81 History of falling; Z66 Do not resuscitate
CPT/HCPCS: 70450; 70551; 80048; 81003; 81015; 83735; 84443; 85025; 85027; 87077; 87086; 87186; 87502; 87811; 92526; 92610; 93005; 97163; 97166; 99285